=== PATIENT | female | born 1960 | race Hispanic/Latino ===

== ENCOUNTER 2022-07-16 09:07 | Inpatient (IN) | payer MEDICARE, MEDICAID ==
[2022-07-16] MEDS ORDERED: Magnevist 469MG/ML 20 ML VIAL ONE (09:14)
[2022-07-16 10:31] LABS: #Eosinphils 0.1 10x3/uL (0.0-0.5); #Monocytes 0.7 10x3/uL (0.0-1.1); #Neutrophils 7.4 10x3/uL (1.5-8.4); %Basophils 0.4 % (0.0-2.0); %Eosinophils 1.1 % (0.0-6.0); %Lymphocytes 17.3 % (18.0-47.0); %Monocytes 7.2 % (0.0-10.0); %Neutrophils 73.8 % (40.0-75.0); Hemoglobin 14.1 g/dL (12.0-15.5); Mean Corpuscular HGB CONC 31.6 g/dL (32.0-36.0); Mean Corpuscular Hemoglobin 29.2 pg (27.0-33.0); Mean Corpuscular Volume 92.3 fl (81.6-98.3); Mean Platelet Volume 11.1 fl (7.4-10.4); Platelet Count 203 10x3/uL (150-450); RBC Distribution Width 14.4 % (11.5-14.5); Red Blood Cell (RBC) Count 4.83 10x6/uL (3.90-5.03); White Blood Cell (WBC) Count 10.1 10x3/uL (3.5-10.5)
[2022-07-16 11:29] LABS: ALT (SGPT) 24 U/L (8-55); AST (SGOT) 32 U/L (5-34); Albumin 3.6 g/dL (3.4-4.8); Alkaline Phosphatase 115 U/L (40-110); Anion Gap 18 mmol/L (10-20); BUN (Urea Nitrogen) 19 mg/dL (9.8-20.1); Bilirubin, Total 0.6 mg/dL (0.2-1.2); Calc. Creatinine Clearance 0 mL/min (70-130); Calcium 9.3 mg/dL (7.8-10.44); Carbon Dioxide 23 mmol/L (23-31); Chloride 106 mmol/L (98-107); Estimated GFR 64; Globulin 3.8 g/dL (2.4-3.5); Glucose 186 mg/dL (80-115); Potassium 3.6 mmol/L (3.5-5.1); Protein, Total 7.4 g/dL (5.8-8.1); Sodium 143 mmol/L (136-145)
[2022-07-16] MEDS ORDERED: Aspirin Chewable 81 MG TAB ONE (11:52)
[2022-07-16 12:06] LABS: Bilirubin Neg (Negative); Blood, Urine Negative (Negative); Clarity Clear (Clear); Glucose, Urine (Dipstick) >=1000 mg/dL (Negative); Ketone, Urine Negative (Negative); Leukocyte Negative (Negative); Nitrite Negative (Negative); Protein, Urine (Dipstick) Negative (Neg-Trace); Urobilinogen Normal mg/dL (Less than 2)
[2022-07-16] MEDS ORDERED: Lorazepam 2 MG/ML VIAL ONE (12:29)
[2022-07-16] MEDS ORDERED: levETIRAcetam 500 MG/5 ML VIAL ONE (12:56)
[2022-07-16 13:36] LABS: Lactic Acid 5.1 mmol/L (0.5-2.2)
[2022-07-16] MEDS ORDERED: Acetaminophen 650 MG Suppository PR PRN (15:12)
[2022-07-16] MEDS ORDERED: Bisacodyl 10 MG SUPP PR PRN (15:12)
[2022-07-16] MEDS: NS 0.9% w/ 20 MEQ KCL 1,000 ML/1,000 ML BAG IV SCH (18:41)
[2022-07-16] MEDS: Carvedilol 3.125 MG TAB PO SCH (18:41)
[2022-07-16 19:11] LABS: Lactic Acid 1.9 mmol/L (0.5-2.2)
[2022-07-16] MEDS ORDERED: Mirtazapine 15 MG Soltab PO SCH (21:00)
[2022-07-16] MEDS ORDERED: levETIRAcetam in NS 500 MG in Premix Bag 1 BAG IVPB SCH (21:00)
[2022-07-16 21:44] LABS: Thyroid Stimulating Hormone 1.5227 uIU/mL (0.35-4.94)
[2022-07-16] MEDS: levETIRAcetam 500 MG/5 ML VIAL SLOW IVP SCH (22:16)
[2022-07-16] MEDS: Atorvastatin Calcium 40 MG TAB PO SCH (22:17)
[2022-07-17] MEDS: NS 0.9% w/ 20 MEQ KCL 1,000 ML/1,000 ML BAG IV SCH ×3 (02:40→20:50)
[2022-07-17 03:36] VITALS: BMI 29.0
[2022-07-17] MEDS ORDERED: FLU VACC QS2022-23(6MOS UP)/PF 60 MCG/0.5 ML SYRINGE IM ONE (04:15)
[2022-07-17 04:43] LABS: Anion Gap 12 mmol/L (10-20); BUN (Urea Nitrogen) 11 mg/dL (9.8-20.1); Calc. Creatinine Clearance 96 mL/min (70-130); Calcium 8.9 mg/dL (7.8-10.44); Carbon Dioxide 25 mmol/L (23-31); Chloride 109 mmol/L (98-107); Estimated GFR 86; Glucose 106 mg/dL (80-115); Potassium 3.5 mmol/L (3.5-5.1); Sodium 142 mmol/L (136-145)
[2022-07-17 04:49] LABS: #Basophils 0.1 10x3/uL (0.0-0.2); #Eosinphils 0.1 10x3/uL (0.0-0.5); #Neutrophils 7.2 10x3/uL (1.5-8.4); %Basophils 0.5 % (0.0-2.0); %Monocytes 9.5 % (0.0-10.0); %Neutrophils 65.7 % (40.0-75.0); Hemoglobin 14.4 g/dL (12.0-15.5); Mean Corpuscular HGB CONC 31.6 g/dL (32.0-36.0); Mean Corpuscular Hemoglobin 29.3 pg (27.0-33.0); Mean Corpuscular Volume 92.9 fl (81.6-98.3); Mean Platelet Volume 11.1 fl (7.4-10.4); Platelet Count 223 10x3/uL (150-450); RBC Distribution Width 14.4 % (11.5-14.5); Red Blood Cell (RBC) Count 4.91 10x6/uL (3.90-5.03)
[2022-07-17] MEDS: Levothyroxine Sodium 100 MCG TAB PO SCH (06:07)
[2022-07-17 07:46] LABS: SARS-CoV-2 NAA Rapid Test Not Detected (NotDetected)
[2022-07-17] MEDS: Folic Acid 1 MG TAB PO SCH ×2 (08:09→10:24)
[2022-07-17] MEDS: Empagliflozin 10 MG TAB PO SCH ×2 (08:09→10:24)
[2022-07-17] MEDS: levETIRAcetam 500 MG/5 ML VIAL SLOW IVP SCH ×3 (08:09→20:49)
[2022-07-17] MEDS: DULoxetine 30 MG CAP PO SCH ×2 (08:09→10:24)
[2022-07-17] MEDS: Carvedilol 3.125 MG TAB PO SCH ×3 (08:09→17:53)
[2022-07-17] MEDS ORDERED: DULoxetine 60 MG CAP PO SCH (09:00)
[2022-07-17] MEDS ORDERED: Aspirin 81 mg Enteric Coated Tablet PO SCH (12:00)
[2022-07-17] MEDS: Atorvastatin Calcium 40 MG TAB PO SCH (20:49)
[2022-07-18 05:26] LABS: #Basophils 0.1 10x3/uL (0.0-0.2); #Eosinphils 0.2 10x3/uL (0.0-0.5); #Monocytes 0.7 10x3/uL (0.0-1.1); #Neutrophils 7.1 10x3/uL (1.5-8.4); %Basophils 0.5 % (0.0-2.0); %Eosinophils 1.8 % (0.0-6.0); %Lymphocytes 18.8 % (18.0-47.0); %Monocytes 6.8 % (0.0-10.0); %Neutrophils 71.9 % (40.0-75.0); Hemoglobin 14.8 g/dL (12.0-15.5); Mean Corpuscular Volume 90.8 fl (81.6-98.3); Mean Platelet Volume 10.6 fl (7.4-10.4); Platelet Count 235 10x3/uL (150-450); White Blood Cell (WBC) Count 9.9 10x3/uL (3.5-10.5)
[2022-07-18 05:41] LABS: Anion Gap 15 mmol/L (10-20); BUN (Urea Nitrogen) 10 mg/dL (9.8-20.1); Calc. Creatinine Clearance 96 mL/min (70-130); Calcium 9.2 mg/dL (7.8-10.44); Carbon Dioxide 23 mmol/L (23-31); Chloride 105 mmol/L (98-107); Estimated GFR 86; Glucose 107 mg/dL (80-115); Potassium 3.6 mmol/L (3.5-5.1); Sodium 139 mmol/L (136-145)
[2022-07-18] MEDS: Levothyroxine Sodium 100 MCG TAB PO SCH (06:15)
[2022-07-18] MEDS: NS 0.9% w/ 20 MEQ KCL 1,000 ML/1,000 ML BAG IV SCH ×2 (08:53→18:55)
[2022-07-18] MEDS: Aspirin 81 mg Enteric Coated Tablet PO SCH (08:59)
[2022-07-18] MEDS: Folic Acid 1 MG TAB PO SCH (09:00)
[2022-07-18] MEDS: levETIRAcetam 500 MG/5 ML VIAL SLOW IVP SCH ×2 (09:00→22:54)
[2022-07-18] MEDS: Carvedilol 3.125 MG TAB PO SCH ×2 (09:00→18:55)
[2022-07-18] MEDS: Empagliflozin 10 MG TAB PO SCH (09:00)
[2022-07-18] MEDS: Atorvastatin Calcium 40 MG TAB PO SCH (22:54)
[2022-07-19] MEDS ORDERED: Melatonin 3 MG TAB PO SCH (00:45)
[2022-07-19] MEDS: NS 0.9% w/ 20 MEQ KCL 1,000 ML/1,000 ML BAG IV SCH (04:51)
[2022-07-19] MEDS: Levothyroxine Sodium 100 MCG TAB PO SCH (04:52)
[2022-07-19] MEDS: Carvedilol 3.125 MG TAB PO SCH (11:23)
[2022-07-19] MEDS: Aspirin 81 mg Enteric Coated Tablet PO SCH (11:23)
[2022-07-19] MEDS: levETIRAcetam 500 MG/5 ML VIAL SLOW IVP SCH (11:23)
[2022-07-19] MEDS: Folic Acid 1 MG TAB PO SCH (11:23)
[2022-07-19] MEDS: Empagliflozin 10 MG TAB PO SCH (11:23)
[2022-07-19 13:03] VITALS: BP 154/82; TEMP 98
== END 2022-07-19 14:18 | DRG 101 ==
LOC: CSHERS 09:07 → CSHTELE 18:08
PROVIDERS: ADMIT Hospitalist; ATTEND Internal Medicine
PROC: 4A10X4Z Monitoring of Central Nervous Electrical Activity, External Approach (ICD-10-PCS; principal; 2022-07-17)
DX: R56.9 Unspecified convulsions (principal); I25.810 Atherosclerosis of coronary artery bypass graft(s) without angina pectoris; I42.9 Cardiomyopathy, unspecified; I50.32 Chronic diastolic (congestive) heart failure; I48.21 Permanent atrial fibrillation; I13.0 Hypertensive heart and chronic kidney disease with heart failure and stage 1 through stage 4 chronic kidney disease, or unspecified chronic kidney disease; I25.10 Atherosclerotic heart disease of native coronary artery without angina pectoris; E03.9 Hypothyroidism, unspecified; E78.5 Hyperlipidemia, unspecified; F03.90 Unspecified dementia, unspecified severity, without behavioral disturbance, psychotic disturbance, mood disturbance, and anxiety; F32.A Depression, unspecified; F41.9 Anxiety disorder, unspecified; E11.65 Type 2 diabetes mellitus with hyperglycemia; N18.9 Chronic kidney disease, unspecified; E11.22 Type 2 diabetes mellitus with diabetic chronic kidney disease; E78.2 Mixed hyperlipidemia; Z20.822 Contact with and (suspected) exposure to COVID-19; Z88.8 Allergy status to other drugs, medicaments and biological substances; Z79.82 Long term (current) use of aspirin; Z79.899 Other long term (current) drug therapy; Z79.4 Long term (current) use of insulin; Z95.1 Presence of aortocoronary bypass graft; Z98.890 Other specified postprocedural states; Z90.710 Acquired absence of both cervix and uterus; Z87.891 Personal history of nicotine dependence
CPT/HCPCS: 36415; 36416; 70450; 70553; 71045; 72125; 80048; 80053; 81003; 82607; 83605; 84443; 84484; 85025; 93005; 93010; 95816; 95819; 95957; A9579; J1650; J1953; J2060; J3480; U0002

== ENCOUNTER 2022-07-29 20:01 | Emergency (ER) | payer MEDICARE, OTHER | END 2022-07-29 20:37 | disposition home or self-care (01) | LOC: CSHERS 20:01 | DX: Z00.00 Encounter for general adult medical examination without abnormal findings (principal); I25.10 Atherosclerotic heart disease of native coronary artery without angina pectoris; E03.9 Hypothyroidism, unspecified; I48.91 Unspecified atrial fibrillation; E11.9 Type 2 diabetes mellitus without complications; I10 Essential (primary) hypertension; E78.00 Pure hypercholesterolemia, unspecified; Z79.4 Long term (current) use of insulin; Z87.891 Personal history of nicotine dependence | CPT/HCPCS: 99282 ==